=== PATIENT | male | born 1990 | race Caucasian/White ===

== ENCOUNTER → 2016-06-10 | Outpatient (CLI) | payer OTHER ==
--- NOTE | 2016-06-10 13:14 | Diagnostic Imaging Report ---
Indication: COUGH Technique: Two views of the chest Comparison: Cough Findings: Lungs and pleural spaces are clear. The heart size is normal. The bones are unremarkable Impression: Negative
== END | disposition home or self-care (01) ==
LOC: RAD 12:08
DX: R05 Cough (principal); R06.02 Shortness of breath
CPT/HCPCS: 71020